=== PATIENT | male | born 1995 | race Caucasian/White ===

== ENCOUNTER 2017-07-13 22:13 | Emergency (ER) | payer MEDICAID ==
[~2017-07-13] VITALS: Ht 188 cm; Wt 77.1 kg
[2017-07-13 22:14] VITALS: BP 155/92
--- NOTE | 2017-07-13 22:17 | Emergency Room Report ---
History of Present Illness General Chief Complaint: Alcohol Intoxication Source: Medical Record, EMS Present Illness HPI This is a 21-year-old male with history of alcohol abuse. He presents with chief complaint of altered mental status. Bystander called 911 because patient was passed out on the steps of a business. He had an armband from [facility] , dated today. On his possession wasn't discharge paperwork from [facility] yesterday. Discharge been worked for alcohol abuse. Unable to get any history from patient because of his intoxication. There was no trauma. Allergies: Coded Allergies: UNABLE TO ASSESS (Unverified , 07/13/17) Patient History Past Medical History: see triage record, old chart reviewed Past Surgical History: other Pertinent Family History: unable to obtain Social History: Reports: alcohol use Immunizations: other Reviewed Nursing Documentation: PMH: Agreed, PSxH: Agreed Nursing Documentation-PMH Past Medical History Deferred: Pt Cognitively Impaired Past Medical History: No Stated History Review of Systems All Other Systems: limited - Secondary to intoxication Physical Exam Vital Signs Date Time Temp Pulse Resp B/P (MAP) Pulse Ox O2 Delivery O2 Flow Rate FiO2 07/13/17 22:06 97.9 81 16 155/92 98 Room Air vitals with hypertension Sp02 EP Interpretation: reviewed, normal General Appearance: well appearing, no apparent distress, other - Disheveled, intoxicated Head: normocephalic, atraumatic Eyes: bilateral eye PERRL, bilateral eye EOMI ENT: hearing grossly normal, normal pharynx Neck: full range of motion, supple, no meningismus Respiratory: chest non-tender, lungs clear, normal breath sounds Cardiovascular #1: regular rate, rhythm, no murmur Gastrointestinal: normal bowel sounds, non tender, no mass, no organomegaly, no bruit, non-distended Musculoskeletal: back normal, normal range of motion Skin: warm/dry Medical Decision Making Diagnostic Impression: Primary Impression: Acute alcoholic intoxication Qualified Codes: F10.929 - Alcohol use, unspecified with intoxication, unspecified ER Course Patient with alcohol intoxication. No trauma to warrant CT scan or x-ray. We' ll observe her until clinical sobriety. Afterward will reassess she became be discharged. Last Vital Signs Date Time Temp Pulse Resp B/P (MAP) Pulse Ox O2 Delivery O2 Flow Rate FiO2 07/13/17 22:06 97.9 81 16 155/92 98 Room Air Status: improved Disposition: HOME, SELF-CARE Condition: Stable Patient Instructions: Alcohol Intoxication, [id number] Additional Instructions: Abstain from alcohol abuse. Followup with rehabilitation. Followup with mental health in a week. Return if symptom worsen. ROBERT PHILLIPS M.D. Jul 13, 2017 22:17
[2017-07-14 00:23] VITALS: BP 139/73
[2017-07-14 05:35] VITALS: BP 135/84
[2017-07-14 05:40] VITALS: BP 135/84
== END 2017-07-14 05:40 | disposition home or self-care (01) ==
LOC: EDBD 22:13 → EMR 22:23
DX: F10.129 Alcohol abuse with intoxication, unspecified (principal); R41.82 Altered mental status, unspecified
CPT/HCPCS: 99284

== ENCOUNTER 2017-07-14 06:31 | Emergency (ER) | payer MEDICAID ==
[~2017-07-14] VITALS: Ht 185.4 cm; Wt 81.6 kg
[2017-07-14 06:33] VITALS: BP 126/89
[2017-07-14] MEDS ORDERED: chlordiazePOXIDE 25mg Cap ORAL ONE (06:45)
[2017-07-14 06:49] VITALS: BP 126/89
--- NOTE | 2017-07-14 06:57 | Emergency Room Report ---
History of Present Illness General Chief Complaint: General Complaint Source: Patient Present Illness HPI 21-year-old female, history of alcohol abuse, has been homeless for 5 months, presenting with generalized weakness and alcohol withdrawal. Patient has been to 3 ERs, including [facility], in the last 2 days for alcohol intoxication. Patient was picked up by EMS after calling 911 when he was at 01/30, complaining of being tremulous and "feeling like I will have a seizure" There was no seizure-like activity today Patient states that he has been homeless for 5 months, was was living in [place] , did not have any friends or family here Denying any suicidal or homicidal thoughts Allergies: Coded Allergies: No Known Allergies (Unverified , 07/14/17) UNABLE TO ASSESS (Unverified , 07/13/17) Patient History Past Medical History: see triage record Past Surgical History: none Pertinent Family History: none Reviewed Nursing Documentation: PMH: Agreed, PSxH: Agreed Review of Systems All Other Systems: negative except mentioned in HPI Physical Exam Vital Signs Date Time Temp Pulse Resp B/P (MAP) Pulse Ox O2 Delivery O2 Flow Rate FiO2 07/14/17 06:24 98.6 128 18 126/89 96 Room Air Sp02 EP Interpretation: reviewed, normal General Appearance: other - disheveled young male, slightly tremulous, calm/ cooperative Head: normocephalic, atraumatic Eyes: bilateral eye normal inspection, bilateral eye PERRL, bilateral eye EOMI ENT: normal ENT inspection, normal pharynx, normal voice, moist mucus membranes Neck: normal inspection, full range of motion, supple Respiratory: normal inspection, lungs clear, normal breath sounds, no respiratory distress, no retraction, no wheezing, speaking full sentences, chest symmetrical Cardiovascular #1: normal inspection, regular rate, rhythm, no edema, normal capillary refill Cardiovascular #2: 2+ radial (R), 2+ radial (L) Gastrointestinal: normal inspection, non tender, soft, non-distended, no guarding Genitourinary: no CVA tenderness Musculoskeletal: normal inspection, back normal, normal range of motion, non- tender Neurologic: alert, oriented x3, responsive, motor strength/tone normal, sensory intact, normal gait, speech normal, other - +mild tremor Psychiatric: normal inspection, judgement/insight normal, memory normal Skin: normal inspection, normal color, no rash, warm/dry, well hydrated, normal turgor Medical Decision Making Diagnostic Impression: Primary Impression: Alcohol withdrawal ER Course 21-year-old male, alcohol abuse, presenting with tremors DDX: Alcohol withdrawal, no signs of any trauma Plan: Librium, observe ER course: Patient has remained stable during ED stay. Has been ambulatory Patient received Librium and then left without papers Disposition: The patient left without papers/without being formally discharged Please note that this Emergency Department Report was dictated using [email or web address] technology software, occasionally this can lead to erroneous entry secondary to interpretation by the dictation equipment Last Vital Signs Date Time Temp Pulse Resp B/P (MAP) Pulse Ox O2 Delivery O2 Flow Rate FiO2 07/14/17 06:33 98.6 128 18 126/89 96 Room Air Disposition: HOME, SELF-CARE Condition: Stable Gavi Briggs M.D. Jul 14, 2017 06:57
== END 2017-07-14 06:49 | disposition home or self-care (01) ==
LOC: EDBD 06:31 → EMR 06:49
DX: F10.239 Alcohol dependence with withdrawal, unspecified (principal); R25.1 Tremor, unspecified; R53.1 Weakness; Z59.0 Homelessness
CPT/HCPCS: 99283